=== PATIENT | female | born 1960 | race Caucasian/White ===

== ENCOUNTER → 2016-12-20 | Outpatient (CLI) | payer BC ==
--- NOTE | ~2016-12-20 | BD1 ---
[facility] A Service of [facility] RADIOLOGY TEXT RESULTS PATIENT: SAE GARRETT LOCATION: [facility] : 64 UNIT #: [id number] AGE: [address]: Daya Vivar MD SEX: F ORDER DR: [id number] [facility] [address] [place], [place] [address] [id number] O MR#: [id number] Acc #: [id number] NAME: SAE GARRETT : 1960 SEX: F STUDY DATE/TIME: 12/20/2016 13:18 UNIT: [facility] ROOM: STUDY DESCRIPTION: BD Dexa Bone Dens 1+ Site Attending Physician: Daya Vivar M.D. Referring Physician: Daya Vivar M.D. Ordering Physician: Daya Vivar M.D. Primary Care Physician: Daya Vivar M.D. MEDICAL IMAGING REPORT This report is preliminary unless electronic signature is present Exam DEXA scan HISTORY Postmenopausal screening for osteoporosis. COMPARISON Bone densitometry 11/25/2014 FINDINGS Bone density was assessed utilizing a Logic bone densitometer. Total bone density within the lumbar spine is calculated at 0.952 g/cm sq with a T-score of -0.9. Total bone density in the proximal left femur was calculated at 0.895 g/cm sq with a T-score of minus 0.4. Patient's left femoral neck bone density was calculated 0.722 g/cm sq with a T score -1.1. Please note many authors feel that total bone density in the proximal femur is a better indicator of overall bone density. IMPRESSION Total bone density within the lumbar spine and proximal left femur is within 1 standard deviation of the mean. No statistically significant change in bone density when compared to the patient's study from 2014. Dictated by... David Brooks M.D. THIS IS AN ELECTRONICALLY VERIFIED REPORT David Brooks M.D. at 12/21/2016 8:00 AM ESTEFANIA/mary TD: 12/20/2016 17:13 JOB #: [id number] [facility] A Service of [facility] RADIOLOGY TEXT RESULTS PATIENT: SAE GARRETT [id number] 64 UNIT #: [id number] AGE: [address]: Daya Vivar MD SEX: F ORDER DR: MEDICAL IMAGING REPORT Page 1 of 1 COPY
--- NOTE | ~2016-12-20 | US128 ---
[id number] [facility] [address] [place], [place] [address] [id number] O MR#: [id number] Acc #: [id number] NAME: SAE GARRETT : 1960 SEX: F STUDY DATE/TIME: 12/20/2016 13:21 UNIT: [facility] ROOM: STUDY DESCRIPTION: Thyroid Attending Physician: Daya Vivar M.D. Referring Physician: Daya Vivar M.D. Ordering Physician: Daya Vivar M.D. Primary Care Physician: Daya Vivar M.D. MEDICAL IMAGING REPORT This report is preliminary unless electronic signature is present EXAM Thyroid ultrasound, 12/20/2016 HISTORY 56-year-old female for followup thyroid nodules. Physician's history states solitary thyroid nodule. COMPARISON Thyroid ultrasound, 11/25/2014 FINDINGS The right thyroid lobe measures 4.3 x 1.4 x 1.5 cm. The isthmus measures 1-2 mm thickness. The left thyroid lobe measures 3.9 x 0.9 x 1.6 cm. The thyroid parenchyma contains multiple small nodular densities. Benign-appearing colloid cyst is demonstrated within the right mid to lower thyroid pole, measuring 4 x 5 x 4 mm,. A previously seen cyst in the right lower thyroid pole is no longer evident on today's examination. However, the technologist has measured an area of ill-defined hypoechoic solid-appearing tissue in the extreme right lower thyroid pole, measuring 8 x 9 x 6 mm. It is thought to correspond to a nodular density seen in this same vicinity on the more remote 2013 ultrasound; it measured 5 x 5 x 5 mm. This region has slightly lobulated margins, but no definite hypervascularity or internal microcalcifications are identified. IMPRESSION Multiple bilateral thyroid nodules, as described above. Most of them are subcentimeter in size and appear benign. There is an ill-defined region of hypoechoic nodularity in the right lower thyroid pole that appears increased in size since the 11/07/2012 examination. On today's examination, it measures about 8-9 mm compared to 4-5 mm in 2013. It has a slightly lobulated contour. Given its slow interval growth and margin characteristics, consider ultrasound-guided fine needle aspiration. Dictated by... Renay Driscoll M.D. THIS IS AN ELECTRONICALLY VERIFIED REPORT Renay Driscoll M.D. at 12/23/2016 5:06 PM OSORIO/kathryn TD: 12/23/2016 12:35 JOB #: [id number] MEDICAL IMAGING REPORT Page 1 of 1 COPY
--- NOTE | ~2016-12-20 | MY11 ---
[facility] A Service of [facility] RADIOLOGY TEXT RESULTS PATIENT: SAE GARRETT [facility] 64 UNIT #: [id number] AGE: [address]: Daya Vivar MD SEX: F ORDER DR: [id number] [facility] [address] [place], [place] [address] [id number] O MR#: [id number] Acc #: [id number] NAME: SAE GARRETT : 1960 SEX: F STUDY DATE/TIME: 12/20/2016 13:08 [facility] ROOM: STUDY DESCRIPTION: MY Mammogram Screening Dig David Attending Physician: Daya Vivar M.D. Referring Physician: Daya Vivar M.D. Ordering Physician: Daya Vivar M.D. Primary Care Physician: Daya Vivar M.D. MEDICAL IMAGING REPORT This report is preliminary unless electronic signature is present EXAM Bilateral digital screening mammogram CAD Date: 12/20/2016 HISTORY 56-year-old female with no personal or family history of breast cancer or current complaints. COMPARISON Bilateral screening mammogram 11/27/2015, 11/25/2014. FINDINGS CC and MLO views were obtained of each breast utilizing digital technique and reviewed an FDA-approved CAD device. Heterogeneously dense fibronodular tissue is present bilaterally which can limit sensitivity of mammography. No focal suspicious nodule, architectural distortion or clustered microcalcification is seen. There is no abnormal skin thickening or nipple retraction. IMPRESSION BIRADS 1. Negative screening mammogram. Routine screening mammogram is recommended in one year. Patients over the age of 40 are entered into a reminder system with target due date for the next mammogram. A result letter will also be sent to the patient. BIRADS: 1 Negative. Dictated by... Renay Driscoll M.D. [facility] A Service of [facility] RADIOLOGY TEXT RESULTS PATIENT: SAE GARRETT [facility] 64 UNIT #: [id number] AGE: [address]: Daya Vivar MD SEX: F ORDER DR: THIS IS AN ELECTRONICALLY VERIFIED REPORT Renay Driscoll M.D. at 12/21/2016 7:11 AM Christin TD: 12/20/2016 14:29 JOB #: [id number] MEDICAL IMAGING REPORT Page 1 of 1 COPY
== END | disposition home or self-care (01) ==
LOC: CWCC 12:38
DX: Z12.31 Encounter for screening mammogram for malignant neoplasm of breast (principal); E04.1 Nontoxic single thyroid nodule; Z13.820 Encounter for screening for osteoporosis; Z78.0 Asymptomatic menopausal state
CPT/HCPCS: 76536; 77080; G0202